=== PATIENT | female | born 1935 | race Two or more races ===

== ENCOUNTER 2016-09-04 19:57 | Inpatient (IN) | payer MEDICARE, MEDICAID ==
[~2016-09-04] VITALS: Ht 157.5 cm; Wt 61.0 kg
[~2016-09-04 19:57] MED LIST: ACET325T21 PO; CARV6.252 PO; CEFD300C37 PO; DOXY100T PO; ENOX40SY4 SQ; LISI-167 PO; LISI-170 PO; LOSA25TA5 PO
[2016-09-04] MEDS ORDERED: MORPHINE SULFATE 4 MG/ML, 1ML ONE (21:46)
[2016-09-04] MEDS ORDERED: ONDANSETRON 2MG/ML, 2ML ONE (21:47)
[2016-09-04] MEDS ORDERED: ALBUTEROL/IPRATROPIUM 2.5MG/0.5MG, 3 ML ONE (21:48)
[2016-09-04] MEDS ORDERED: ALBUTEROL/IPRATROPIUM 2.5MG/0.5MG, 3 ML NPPB ONE (22:00)
[2016-09-04] MEDS ORDERED: SODIUM CHLORIDE FLUSH 10ML SYR IVF ONE (22:00)
[2016-09-04] MEDS ORDERED: MORPHINE SULFATE 4 MG/ML, 1ML IVPush PRN (22:00)
[2016-09-04] MEDS ORDERED: ONDANSETRON 2MG/ML, 2ML IVPush ONE (22:00)
[2016-09-04] MEDS ORDERED: CARV3.1212 PO (22:07)
[2016-09-04 22:08] LABS: BLOOD UREA NITROGEN 23 mg/dL (7-18)
[2016-09-04] MEDS ORDERED: POLYETHYLENE GLYCOL 17 GM PACKET PO PRN (23:00)
[2016-09-04] MEDS ORDERED: BISACODYL 10 MG SUPP PR PRN (23:00)
[2016-09-04] MEDS ORDERED: ONDANSETRON 2MG/ML, 2ML IVPush PRN (23:00)
[2016-09-05] VITALS: BP 134/79
[2016-09-05 01:00] VITALS: BP 134/79
[2016-09-05] MEDS: CEFTRIAXONE 1,000 MG in SODIUM CHLORIDE 0.9% 50 ML IV SCH (01:05)
[2016-09-05] MEDS: LOSARTAN 25MG TABLET PO SCH ×3 (01:05→21:36)
[2016-09-05] MEDS: SODIUM CHLORIDE FLUSH 3ML SYRINGE IVF SCH ×3 (01:05→21:36)
[2016-09-05] MEDS: AZITHROMYCIN 500 MG in SODIUM CHLORIDE 0.9% 250 ML IV SCH (01:54)
[2016-09-05 06:19] LABS: BLOOD UREA NITROGEN 20 mg/dL (7-18)
[2016-09-05 06:30] LABS: ASPARTATE AMINO TRANSFERASE 25 U/L (15-37)
[2016-09-05 07:31] VITALS: BP 127/74
[2016-09-05] MEDS: KETOROLAC 30 MG/1 ML IVPush PRN ×2 (08:51→17:52)
[2016-09-05] MEDS: CARVEDILOL 3.125 MG TABLET PO SCH (08:52)
[2016-09-05] MEDS: SENNA/DOCUSATE TABLET PO SCH (08:55)
[2016-09-05 13:19] VITALS: BP 113/75
[2016-09-05] MEDS: ACETAMINOPHEN 325 MG TABLET PO PRN (13:34)
[2016-09-05 18:24] VITALS: BP 127/69
[2016-09-06] MEDS: CEFTRIAXONE 1,000 MG in SODIUM CHLORIDE 0.9% 50 ML IV SCH (01:17)
[2016-09-06 01:43] VITALS: BP 121/76
[2016-09-06] MEDS: AZITHROMYCIN 500 MG in SODIUM CHLORIDE 0.9% 250 ML IV SCH (02:49)
[2016-09-06] MEDS: KETOROLAC 30 MG/1 ML IVPush PRN ×3 (02:54→20:45)
[2016-09-06 05:21] LABS: BLOOD UREA NITROGEN 25 mg/dL (7-18)
[2016-09-06 06:46] VITALS: BP 158/79
[2016-09-06] MEDS: CARVEDILOL 3.125 MG TABLET PO SCH (09:01)
[2016-09-06] MEDS: LOSARTAN 25MG TABLET PO SCH ×2 (09:01→20:45)
[2016-09-06] MEDS: SENNA/DOCUSATE TABLET PO SCH (09:01)
[2016-09-06] MEDS: SODIUM CHLORIDE FLUSH 3ML SYRINGE IVF SCH ×2 (09:04→20:45)
[2016-09-06 13:45] VITALS: BP 126/67
[2016-09-06 20:34] VITALS: BP 168/90
[2016-09-07] MEDS: CEFTRIAXONE PMX 1GM/50ML 50 ML IV SCH (01:12)
[2016-09-07 02:02] VITALS: BP 158/85
[2016-09-07] MEDS: AZITHROMYCIN 500 MG in SODIUM CHLORIDE 0.9% 250 ML IV SCH (02:27)
[2016-09-07] MEDS: ACETAMINOPHEN 325 MG TABLET PO PRN ×2 (02:44→22:26)
[2016-09-07 07:15] VITALS: BP 170/90
[2016-09-07] MEDS: SENNA/DOCUSATE TABLET PO SCH (07:57)
[2016-09-07] MEDS: LOSARTAN 25MG TABLET PO SCH ×2 (07:57→21:29)
[2016-09-07] MEDS: CARVEDILOL 3.125 MG TABLET PO SCH (07:57)
[2016-09-07] MEDS: SODIUM CHLORIDE FLUSH 3ML SYRINGE IVF SCH ×2 (07:58→21:29)
[2016-09-07 10:27] VITALS: BP 158/79
[2016-09-07] MEDS: KETOROLAC 30 MG/1 ML IVPush PRN (10:31)
[2016-09-07] MEDS: HYDROcodone/APAP 5/325 TABLET PO PRN ×3 (12:02→22:56)
[2016-09-07] MEDS: GUAIFENESIN 200 MG TABLET PO SCH ×3 (12:02→21:29)
[2016-09-07 12:36] VITALS: BP 152/83
[2016-09-07 20:00] VITALS: BP 165/85
[2016-09-08] MEDS: CEFTRIAXONE PMX 1GM/50ML 50 ML IV SCH (01:42)
[2016-09-08 01:58] VITALS: BP 183/94
[2016-09-08 02:31] VITALS: BP 134/79
[2016-09-08] MEDS: AZITHROMYCIN 500 MG in SODIUM CHLORIDE 0.9% 250 ML IV SCH (02:32)
[2016-09-08] MEDS: HYDROcodone/APAP 5/325 TABLET PO PRN ×3 (02:37→20:40)
[2016-09-08 05:45] LABS: BLOOD UREA NITROGEN 30 mg/dL (7-18)
[2016-09-08 07:49] VITALS: BP 133/84
[2016-09-08] MEDS: CARVEDILOL 3.125 MG TABLET PO SCH (07:58)
[2016-09-08] MEDS: LOSARTAN 25MG TABLET PO SCH ×2 (07:59→20:40)
[2016-09-08] MEDS: SODIUM CHLORIDE FLUSH 3ML SYRINGE IVF SCH ×2 (07:59→23:06)
[2016-09-08] MEDS: SENNA/DOCUSATE TABLET PO SCH (07:59)
[2016-09-08] MEDS: GUAIFENESIN 200 MG TABLET PO SCH ×4 (07:59→20:40)
[2016-09-08] MEDS ORDERED: ALBUTEROL SULFATE 2.5 MG/3 ML NPPB SCH (09:30)
[2016-09-08] MEDS ORDERED: methylPREDNISolone 4mg DOSE PACK PO SCH (11:30)
[2016-09-08] MEDS: ALBUTEROL SULFATE 2.5 MG/3 ML NPPB SCH ×2 (14:00→19:43)
[2016-09-08] MEDS ORDERED: ALBUTEROL SULFATE 2.5 MG/3 ML NPPB PRN (14:00)
[2016-09-08 15:01] VITALS: BP 145/81
[2016-09-08 20:16] VITALS: BP 135/75
[2016-09-09] MEDS: CEFTRIAXONE PMX 1GM/50ML 50 ML IV SCH (00:54)
[2016-09-09 01:22] VITALS: BP 130/72
[2016-09-09] MEDS: AZITHROMYCIN 500 MG in SODIUM CHLORIDE 0.9% 250 ML IV SCH (01:49)
[2016-09-09 06:00] LABS: BLOOD UREA NITROGEN 21 mg/dL (7-18)
[2016-09-09] MEDS: GUAIFENESIN 200 MG TABLET PO SCH ×2 (06:24→11:08)
[2016-09-09] MEDS: ALBUTEROL SULFATE 2.5 MG/3 ML NPPB SCH ×2 (07:25→10:44)
[2016-09-09 08:01] VITALS: BP 164/86
[2016-09-09] MEDS: LOSARTAN 25MG TABLET PO SCH (08:05)
[2016-09-09] MEDS: CARVEDILOL 3.125 MG TABLET PO SCH (08:06)
[2016-09-09] MEDS: SENNA/DOCUSATE TABLET PO SCH (08:06)
[2016-09-09] MEDS: HYDROcodone/APAP 5/325 TABLET PO PRN ×2 (08:07→12:04)
[2016-09-09] MEDS: SODIUM CHLORIDE FLUSH 3ML SYRINGE IVF SCH (09:00)
[2016-09-09] MEDS ORDERED: METH4TAB2 PO (09:21)
[2016-09-09] MEDS ORDERED: GUAI200T3 PO (09:21)
[2016-09-09] MEDS ORDERED: HYDR-3240 PO (09:21)
[2016-09-09] MEDS ORDERED: CEFD300C37 PO (09:21)
[2016-09-09] MEDS ORDERED: CARV3.1212 PO (09:27)
[2016-09-09 12:25] VITALS: BP 117/80
== END 2016-09-09 12:36 | DRG 183 ==
LOC: ED 21:33 → EDIP 22:37 → 4NOR 23:15
PROVIDERS: ADMIT Internal Medicine; ATTEND Internal Medicine
DX: S22.42XA Multiple fractures of ribs, left side, initial encounter for closed fracture (principal); J18.9 Pneumonia, unspecified organism; E78.5 Hyperlipidemia, unspecified; F03.90 Unspecified dementia, unspecified severity, without behavioral disturbance, psychotic disturbance, mood disturbance, and anxiety; I10 Essential (primary) hypertension; R53.81 Other malaise; W01.0XXA Fall on same level from slipping, tripping and stumbling without subsequent striking against object, initial encounter; Y93.89 Activity, other specified; Y92.89 Other specified places as the place of occurrence of the external cause; Z90.710 Acquired absence of both cervix and uterus; Z79.899 Other long term (current) drug therapy; Z86.73 Personal history of transient ischemic attack (TIA), and cerebral infarction without residual deficits; Z99.3 Dependence on wheelchair; Z86.718 Personal history of other venous thrombosis and embolism
CPT/HCPCS: 36415; 71010; 80048; 80053; 81001; 82040; 85025; 87040; 87070; 87086; 87205; 94640; 96374; 96375; J0456; J0696; J1885; J2405; J7509; J7613; J7050